=== PATIENT | female | born 1995 | race Caucasian/White ===

== ENCOUNTER 2018-10-01 00:27 | Emergency (ER) | payer SELFPAY ==
--- NOTE | 2018-10-01 08:17 | ULT ---
PELVIC ULTRASOUND WITH ROSADO SCALE AND DOPPLER COLOR FLOW IMAGING: Date: 10/01/18 INDICATION: Pelvic pain/cramping. FINDINGS: There is no focal uterine lesion. Doppler evaluation does reveal flow to each ovary. Endometrial stri pe measures 11 mm, within normal limits of size for patient's age. No evidence of an intrauterine ges tation. There is mild free pelvic fluid, nonspecific. There is a hypoechoic focus of the right ovary which likely relates to physiologic follicle. IMPRESSION: 1. No evidence of intrauterine gestation on the basis of this exam, therefore, ectopic can not be excluded. This should be further evaluated with serial beta HCG follow-up, as well as short-te rm imaging follow-up as necessary. 2. Mild nonspecific free pelvic fluid. POS: [facility]
== END 2018-10-01 01:52 | disposition home or self-care (01) ==
LOC: ERS 00:27
DX: O99.89 Other specified diseases and conditions complicating pregnancy, childbirth and the puerperium (principal); R10.12 Left upper quadrant pain; R10.32 Left lower quadrant pain; O99.333 Smoking (tobacco) complicating pregnancy, third trimester; Z3A.08 8 weeks gestation of pregnancy
CPT/HCPCS: 76856

== ENCOUNTER 2018-10-05 15:13 | Day surgery (SDC) | payer MEDICAID, OTHER ==
[~2018-10-05 15:13] MED LIST: PROPOFOL 200 MG/20 ML VIAL ONE; Succinylcholine Chloride 20 MG/ML 10 ml SYRINGE FS ONE
[2018-10-05 15:46] LABS: #Basophils 0.1 thou/uL (0.0-0.2); #Eosinphils 0.2 thou/uL (0.0-0.7); #Lymphocytes 3.1 thou/uL (1.20-3.40); #Monocytes 1.1 thou/uL (0.11-0.59); #Neutrophils 6.5 thou/uL (1.40-6.50); %Basophils 0.6 % (0.0-1.0); %Eosinophils 2.2 % (0.0-10.0); %Lymphocytes 28.1 % (21.0-51.0); %Neutrophils 59.1 % (42.0-75.0); Hemoglobin 11.9 g/dL (12.0-16.0); Mean Corpuscular Volume 90.8 fL (78.0-98.0); Mean Platelet Volume 9.7 fL (7.4-10.4); Platelet Count 250 thou/uL (130-400); RBC Distribution Width 12.1 % (11.5-14.5)
[2018-10-05 16:04] LABS: ALT (SGPT) 16 U/L (8-55); AST (SGOT) 14 U/L (5-34); Alkaline Phosphatase 60 U/L (40-150); Anion Gap 12 mmol/L (10-20); BUN (Urea Nitrogen) 9 mg/dL (7.0-18.7); Bilirubin, Total 0.7 mg/dL (0.2-1.2); CK (CPK) 85 U/L (29-168); Calc. Creatinine Clearance 0 mL/min (70-130); Calcium 9.1 mg/dL (7.8-10.44); Carbon Dioxide 20 mmol/L (22-29); Chloride 108 mmol/L (98-107); Estimated GFR-MDRD Greater than 90; Globulin 3.1 g/dL (2.4-3.5); Glucose 94 mg/dL (70-105); Potassium 3.4 mmol/L (3.5-5.1); Protein, Total 7.1 g/dL (6.0-8.3); Sodium 137 mmol/L (136-145)
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
[2018-10-05] MEDS ORDERED: Acetaminophen 500 MG TAB ONE (16:57)
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
[2018-10-05] MEDS ORDERED: Adacel (T-DAP) 0.5 ML SYRINGE ONE ×2 (19:17→19:32)
[2018-10-05] MEDS ORDERED: Neomycin-Polymyxin 1 ML AMP ONE ×3 (19:41→19:54)
[2018-10-05] MEDS ORDERED: Fentanyl 100 MCG/2 ML VIAL ONE ×2 (20:37→21:03)
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
[2018-10-05] MEDS ORDERED: Morphine 4 MG/ML VIAL ONE (22:15)
[2018-10-05] MEDS ORDERED: Ketorolac Tromethamine 30 MG/ML VIAL ONE (22:27)
[2018-10-05] MEDS ORDERED: Ondansetron PF 4 MG/2 ML Vial ONE (22:49)
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
== END 2018-10-05 23:00 | disposition home or self-care (01) ==
LOC: ERS 15:13 → SDC/OP 19:57
PROVIDERS: ATTEND Surgery
PROC: 0LQ40ZZ Repair Left Upper Arm Tendon, Open Approach (ICD-10-PCS; principal; 2018-10-05)
DX: S46.392A Other injury of muscle, fascia and tendon of triceps, left arm, initial encounter (principal); S51.012A Laceration without foreign body of left elbow, initial encounter; F32.9 Major depressive disorder, single episode, unspecified; Z88.2 Allergy status to sulfonamides; Z88.5 Allergy status to narcotic agent; V49.9XXA Car occupant (driver) (passenger) injured in unspecified traffic accident, initial encounter; Y92.410 Unspecified street and highway as the place of occurrence of the external cause
CPT/HCPCS: 80053; 82550; 84702; 85025; 90471; 90715; 96374; C1713; G0390; J0690; J1885; J2270; J2405; J2704; J3010

== ENCOUNTER 2019-02-15 08:28 | Outpatient (CLI) | payer OTHER ==
--- NOTE | 2019-02-15 09:28 | ULT ---
Obstetric sonogram HISTORY: evaluation. Second trimester gestation. FINDINGS: Single intrauterine gestation in breech presentation. Cervix is closed and 5.0 cm. Grade 0 placenta is anterior. No evidence of previa. Amniotic fluid is within normal limits. spine and kidneys are intact as visualized. Four-chamber heart shows motion at 136 bpm. No gross intracrani al abnormalities are apparent. Three-vessel cord shows a normal insertion. Measurements are as follows: Biparietal diameter 25 weeks 3 days. Head circumference 24 weeks 2 days. Abdominal circumference 24 weeks 0 days. Femur length 23 weeks 1 day. Hadlock 39 percentile. Estimated date of delivery based on today's sonogram 06/05/2019. IMPRESSION: Single viable intrauterine gestation. Estimated gestational age 24 weeks 2 days. No signi ficant abnormalities are demonstrated.
== END 2019-02-15 08:29 | disposition home or self-care (01) ==
LOC: BICULT 08:28
PROVIDERS: ATTEND Nurse Practitioner
DX: O09.92 Supervision of high risk pregnancy, unspecified, second trimester (principal); Z3A.24 24 weeks gestation of pregnancy; Z98.891 History of uterine scar from previous surgery
CPT/HCPCS: 76805

== ENCOUNTER 2019-05-14 14:40 | Day surgery (SDC) | payer OTHER ==
[2019-05-14] MEDS ORDERED: hydrALAZINE 20 MG/ML VIAL SLOW IVP PRN (14:49)
[2019-05-14 15:01] VITALS: BP 116/67; TEMP 98.1; BMI 43.2
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
--- NOTE | 2019-05-14 15:04 | PDOC.EVN ---
Event Note - Event Note Event Note: OBGYN Faculty Attestation H&P I have seen this patient at bedside. Report reviewed with Dr England. CC: decreased FM now resolved HPI: 23 yo with HX CS at term in past here for decesaed FM x 3 hrs. EGA is 36 weeks 2 days. Now feels FM. No CTX, no VB, no LOF, no fevers. Also does state some itching in palms of liang with no rash Review of Systems: complete ROS performed and as per HPI Past med: Asthma Meds: PNV, asthma MDI Q Day OB HX: CS X 1 for NRFHTS All: Codeine Physical: VSS afebrile. NAD No rashes seen Monitors: NST reactive, no CTX Assessment and Plan: Resolved decreased FM at late . NST reactive. Itching reviewed with the patient. Discussed CMP and bile acid blood tst. Draw today and follow up Graza results this week.
[2019-05-14 15:55] LABS: ALT (SGPT) 42 U/L (8-55); AST (SGOT) 20 U/L (5-34); Albumin 3.1 g/dL (3.5-5.0); Alkaline Phosphatase 179 U/L (40-110); Anion Gap 13 mmol/L (10-20); BUN (Urea Nitrogen) 8 mg/dL (7.0-18.7); Bilirubin, Total 0.4 mg/dL (0.2-1.2); Calc. Creatinine Clearance 226 mL/min (70-130); Calcium 8.7 mg/dL (7.8-10.44); Carbon Dioxide 19 mmol/L (22-29); Chloride 106 mmol/L (98-107); Estimated GFR-MDRD Greater than 90; Globulin 3.9 g/dL (2.4-3.5); Glucose 68 mg/dL (70-105); Potassium 3.9 mmol/L (3.5-5.1); Sodium 134 mmol/L (136-145)
== END 2019-05-14 15:26 | disposition home health service (06) ==
LOC: L&D/OP 14:40
PROVIDERS: ATTEND Family Medicine
DX: O36.8130 Decreased fetal movements, third trimester, not applicable or unspecified (principal); O26.893 Other specified pregnancy related conditions, third trimester; L29.9 Pruritus, unspecified; O99.513 Diseases of the respiratory system complicating pregnancy, third trimester; J45.909 Unspecified asthma, uncomplicated; Z3A.36 36 weeks gestation of pregnancy; Z79.899 Other long term (current) drug therapy; Z88.5 Allergy status to narcotic agent
CPT/HCPCS: 36415; 59025; 80053; 82239; 99283

== ENCOUNTER 2019-06-06 05:48 | Inpatient (IN) | payer OTHER ==
[2019-06-06] MEDS ORDERED: Promethazine HCl 25 MG/ML VIAL IM PRN ×3 (06:18→13:45)
[2019-06-06] MEDS ORDERED: Bicitra 30 ML UDCUP PO SCH (06:18)
[2019-06-06] MEDS ORDERED: CEFAZOLIN 3 GM in Sodium Chloride 0.9% 100 ML IVPB SCH (06:18)
[2019-06-06] MEDS ORDERED: hydrALAZINE 20 MG/ML VIAL SLOW IVP PRN ×2 (06:18→12:29)
[2019-06-06] MEDS ORDERED: Lactated Ringer's 1,000 ML IV SCH (06:18)
[2019-06-06] MEDS ORDERED: Ondansetron PF 4 MG/2 ML Vial IVP PRN ×3 (06:18→13:45)
[2019-06-06 06:45] VITALS: BMI 43.2
[2019-06-06 06:47] LABS: Hemoglobin 10.1 g/dL (12.0-16.0); Mean Corpuscular HGB CONC 32.2 g/dL (32.0-36.0); Mean Corpuscular Hemoglobin 26.1 pg (27.0-31.0); Mean Corpuscular Volume 80.9 fL (78.0-98.0); Mean Platelet Volume 10.1 fL (7.4-10.4); Platelet Count 238 thou/uL (130-400); RBC Distribution Width 14.3 % (11.5-14.5); Red Blood Cell (RBC) Count 3.89 mill/uL (4.20-5.40); White Blood Cell (WBC) Count 12.1 thou/uL (4.8-10.8)
[2019-06-06 07:23] LABS: HBSAg Index 0.22 S/CO (0-0.99); Hep B Surf Ag Non-Reactive S/CO (NonReactive); Syphilis Antibody Nonreactive (Nonreactive); Syphilis Antibody Index 0.28 S/CO (<1.00 Non-Reactive)
[2019-06-06] MEDS ORDERED: MORPHINE 5 MG/10 ML PF VIAL ONE (09:15)
[2019-06-06] MEDS ORDERED: Ondansetron PF 4 MG/2 ML Vial ONE (09:16)
[2019-06-06] MEDS ORDERED: Oxytocin 10 UNITS/ML VIAL ONE ×2 (09:16→10:02)
[2019-06-06] MEDS ORDERED: PHENYLEPHRINE-NS 100 MCG/ML 10 ML SYRINGE ONE ×2 (09:53→10:37)
[2019-06-06] MEDS ORDERED: EPHEDRINE 25 MG/5 ML SYRINGE ONE (10:37)
[2019-06-06] MEDS ORDERED: diphenhydrAMINE 25 MG CAP PO PRN (12:29)
[2019-06-06] MEDS ORDERED: Simethicone Chewable 80 MG TAB PO PRN (12:29)
[2019-06-06] MEDS ORDERED: Lanolin Ointment 7 GM TUBE TOP PRN (12:29)
[2019-06-06] MEDS ORDERED: HYDROcodone/Acetaminophen 5/325 mg Tablet PO PRN ×2 (12:29)
[2019-06-06] MEDS ORDERED: Adacel (T-DAP) 0.5 ML SYRINGE IM ONE (12:29)
[2019-06-06] MEDS ORDERED: Bisacodyl 10 MG SUPP PR PRN (12:29)
[2019-06-06] MEDS ORDERED: Meperidine HCl/PF 25 MG/ML VIAL IM PRN (12:29)
[2019-06-06] MEDS ORDERED: Promethazine HCl 25 MG SUPP PR PRN (13:45)
[2019-06-06] MEDS ORDERED: Naloxone HCl 0.4 mg/ml Vial IV PRN (13:45)
[2019-06-06] MEDS ORDERED: Naloxone HCl 0.4 mg/ml Vial IVP PRN ×2 (13:45)
[2019-06-06] MEDS ORDERED: Communication Order-Pharmacy FS SCH (13:45)
[2019-06-06] MEDS ORDERED: Ketorolac Tromethamine 30 MG/ML VIAL IVP PRN (13:45)
[2019-06-06] MEDS ORDERED: diphenhydrAMINE 50 MG/ML VIAL IVP PRN (13:45)
[2019-06-06] MEDS: Ketorolac Tromethamine 30 MG/ML VIAL IVP SCH (14:34)
[2019-06-06] MEDS: Ferrous Sulfate 325 MG TAB PO SCH (16:42)
[2019-06-06] MEDS: Docusate Calcium (SURFAK) 240 MG CAP PO SCH (21:42)
--- NOTE | 2019-06-06 22:29 | OP ---
DATE OF PROCEDURE: 06/06/2019 PRIMARY SURGEON: Kole Valenzuela MD. PULMONOLOGY TECHNICIAN SURGEON: Chloe England MD. PROCEDURE PERFORMED: Repeat low transverse section. PREOPERATIVE DIAGNOSES: 1. Term intrauterine . 2. History of previous x1. 3. Obesity. POSTOPERATIVE DIAGNOSES: 1. Term intrauterine , delivered. 2. History of previous x1. 3. Obesity. ANESTHESIA: Spinal. INDICATIONS: The patient is a 24-year-old, G2, P1 female at 39.4 weeks gestation, who presents for a scheduled repeat section. DESCRIPTION OF PROCEDURE: After risks, benefits, and alternatives were explained to the patient, she gave informed consent. Preoperative antibiotics included cefazolin 2 g IV. The patient was taken to the operating room where spinal anesthesia was obtained. The patient was then placed in a supine position with a left tilt and prepped and draped in the usual sterile fashion. A Pfannenstiel incision was made with a scalpel and carried down to the level of the fascia which was sharply nicked. Fascial cut was extended bilaterally with Jaeger scissors. Inferior and superior edges of the fascia were elevated with a Kamari clamp and the underlying rectus muscles were sharply and bluntly dissected free. The recti were divided digitally and retracted manually. Peritoneum was then entered bluntly and retracted manually. A bladder blade was then placed and extensive lysis of adhesions with sharp and electrocautery was performed to allow adequate view of the lower uterine segment. A low transverse score was made with a scalpel and the uterus was entered bluntly in the midline. The hysterotomy was then extended manually. The was noted to be vertex and was easily delivered by fundal pressure. Cord was clamped and cut and grossly normal male was handed to waiting nurse. Cord blood was obtained. Placenta was manually extracted and noted to be intact with a three-vessel cord. The uterus was then externalized and the endometrium was curetted with a dry lap. The bladder blade was replaced and the uterus was closed with a running locking #1 Monocryl suture. Following this, hemostasis of the hysterotomy was noted and the abdomen was then irrigated with saline and suctioned free of clots. Four sheets of Seprafilm were placed over the hysterotomy and anterior aspect of the uterus before internalization. After the uterus was replaced, hemostasis was noted. Following this, the fascia was closed with a running nonlocking 0 PDS suture. Subcutaneous layer was then closed with interrupted 3-0 Vicryl sutures. Subcutaneous tissue was then irrigated and further bleeders were cauterized using electrocautery. Skin was then reapproximated with natali and a pressure dressing was applied. All counts were correct. The patient tolerated the procedure well and was taken to the recovery room in stable condition. QUANTITATIVE BLOOD LOSS: 520 mL. COMPLICATIONS: None. SPECIMENS: 1. Cord blood sent to the lab for blood type. FINDINGS: 1. Grossly normal male with Apgars of 8 and 9. 2. Grossly normal placenta with three-vessel cord. DRAINS: Coreas to gravity draining clear urine. Job ID: [id number] [facility]
[2019-06-07] MEDS: Ketorolac Tromethamine 30 MG/ML VIAL IVP SCH ×2 (00:20→04:57)
[2019-06-07] MEDS ORDERED: Sodium Chloride 0.9% 10 ML ONE (00:54)
[2019-06-07] MEDS ORDERED: Meperidine HCl/PF 25 MG/ML VIAL IM PRN (01:45)
[2019-06-07] MEDS: HYDROcodone/Acetaminophen 5/325 mg Tablet PO PRN ×3 (04:51→19:19)
[2019-06-07 06:36] LABS: Hemoglobin 7.9 g/dL (12.0-16.0); Mean Corpuscular HGB CONC 32.6 g/dL (32.0-36.0); Mean Corpuscular Hemoglobin 26.1 pg (27.0-31.0); Mean Corpuscular Volume 80.1 fL (78.0-98.0); Platelet Count 181 thou/uL (130-400); RBC Distribution Width 14.4 % (11.5-14.5); Red Blood Cell (RBC) Count 3.04 mill/uL (4.20-5.40); White Blood Cell (WBC) Count 12.7 thou/uL (4.8-10.8)
[2019-06-07] MEDS: Ferrous Sulfate 325 MG TAB PO SCH ×2 (08:38→16:48)
[2019-06-07] MEDS: Docusate Calcium (SURFAK) 240 MG CAP PO SCH ×2 (08:38→21:29)
[2019-06-07] MEDS: Prenatal Vitamin 1 TAB PO SCH (08:38)
[2019-06-07] MEDS: Ibuprofen 800 MG TAB PO SCH ×2 (13:34→21:29)
[2019-06-08] MEDS: HYDROcodone/Acetaminophen 5/325 mg Tablet PO PRN ×2 (01:05→22:28)
[2019-06-08] MEDS: Ibuprofen 800 MG TAB PO SCH ×3 (05:49→22:28)
[2019-06-08] MEDS: Docusate Calcium (SURFAK) 240 MG CAP PO SCH ×2 (07:26→22:28)
[2019-06-08] MEDS: Ferrous Sulfate 325 MG TAB PO SCH ×2 (07:26→16:16)
[2019-06-08] MEDS: Prenatal Vitamin 1 TAB PO SCH (07:26)
[2019-06-08] MEDS ORDERED: Measles/Mumps/Rubella 10 MCG/0.5 ML VIAL SC ONE (15:45)
[2019-06-09] MEDS: Ibuprofen 800 MG TAB PO SCH ×2 (04:43→13:51)
[2019-06-09] MEDS: Prenatal Vitamin 1 TAB PO SCH (09:02)
[2019-06-09] MEDS: Docusate Calcium (SURFAK) 240 MG CAP PO SCH (09:02)
[2019-06-09] MEDS: Ferrous Sulfate 325 MG TAB PO SCH ×2 (09:02→17:06)
[2019-06-09 11:45] VITALS: BP 114/70; TEMP 98.9
[2019-06-09] MEDS ORDERED: Acetaminophen 325 MG TAB PO PRN (12:39)
== END 2019-06-09 17:50 | disposition home or self-care (01) | DRG 788 ==
LOC: L&D 05:48 → 3SW 12:55
PROVIDERS: ADMIT Family Medicine; ATTEND Family Medicine
PROC: 10D00Z1 Extraction of Products of Conception, Low, Open Approach (ICD-10-PCS; principal; 2019-06-06)
PROC: 3E0234Z Introduction of Serum, Toxoid and Vaccine into Muscle, Percutaneous Approach (ICD-10-PCS; 2019-06-06)
DX: O34.211 Maternal care for low transverse scar from previous cesarean delivery (principal); O99.214 Obesity complicating childbirth; E66.9 Obesity, unspecified; Z3A.39 39 weeks gestation of pregnancy; Z37.0 Single live birth; Z23 Encounter for immunization
CPT/HCPCS: 36415; 51702; 85027; 86780; 86850; 86870; 86900; 86901; 86922; 87340; 90707; J0690; J1885; J2274; J2310; J2405; J2590; J3490; Q0163

== ENCOUNTER 2021-01-29 10:31 | Outpatient (CLI) | payer OTHER | END 2021-01-29 10:32 | disposition home or self-care (01) | LOC: BICRAD 10:31 | PROVIDERS: ATTEND Internal Medicine | DX: R05.9 Cough, unspecified (principal) | CPT/HCPCS: 71046 ==